=== PATIENT | male | born 1970 | race Caucasian/White ===

== ENCOUNTER 2016-08-12 12:09 | Emergency (ER) | payer OTHER ==
[~2016-08-12] VITALS: Ht 177.8 cm; Wt 68.2 kg
[2016-08-12 12:14] VITALS: BP 150/76; PULSE 71; RESP 20; O2SAT 99
[2016-08-12] MEDS ORDERED: 0.9% Sodium Chloride 1,000 ML IV ONE (12:25)
[2016-08-12] MEDS ORDERED: HYDROmorphone 0.5 mg/0.5 mL iSecure Syringe IVPUSH PRN (12:25)
[2016-08-12] MEDS ORDERED: HYDROmorphone 1 mg/mL Inj IVPUSH ONE (12:25)
[2016-08-12] MEDS ORDERED: Ondansetron 2 mg/mL 2 mL Inj IVPUSH PRN (12:25)
--- NOTE | 2016-08-12 12:25 | ED.REPORT ---
HPI-Abd Pain F 40 and Over Date of Service Aug 12, 2016 ED Provider: Katharine Camara MD The pt is a 46 y/o male presenting to the ED complaining of severe abdominal pain onset four hours ago. He reports the pain being primarily in his lower abdomen and pelvis and beginning after he ate something at work. Yesterday he also reports having a episode of sharp abdominal pain which lasted roughly ten minutes. The pt has also been experiencing allergies for the last 3-4 days. Nursing Notes Stated Complaint: ABDOMINAL PAIN Chief Complaint: Male Abdominal Pain Nursing Notes Reviewed: Yes Allergies: Coded Allergies: No Known Allergies (Unverified , 08/12/16) Scheduled PRN oxyCODONE-Acetaminophen 5-325 mg (oxyCODONE-Acetaminophen 5-325 mg) 1 Each Tablet 1-2 TAB PO Q6H PRN PRN For Pain General Time Seen by MD: 12:24 Chief Complaint Abdominal pain Hx Obtained From: Patient Arrived By: Walk-in Sudden in Onset?: Yes Onset Occurred: 1 - 4 hours ago Symptom Duration: Since onset Recent Healthcare: No recent doctor visit, No recent hospitalization Similar Sx Previous: No Past Medical History Past Medical History None reported Past Surgical History None reported Smoking History Unknown if Ever Smoker Ambulatory Status Independent Review of Systems GI: Reports: Abdominal pain Female: Reports: Pelvic pain Complete sys rev & neg: except as marked. Physical Exam Vital Signs Vital Signs (First) Date Time Temp Pulse Resp B/P Pulse Ox O2 Delivery O2 Flow Rate FiO2 08/12/16 12:14 36.7 71 20 150/76 99 Room Air Initial VS: Reviewed General/Constitutional: Awake, Alert Respiratory / Chest: Atraumatic, Breath sounds NL, Breath sounds = bilat, No respiratory distress, No rales, No rhonchi, No wheezing Cardiovascular: Heart rate NL, Regular rhythm, Heart sounds NL Abdomen: Soft, No rebound Tenderness/Guarding/Rebound: Positive: Tender LLQ... (Significant), Tender epigastric (Mild ) Guarding Back: Atraumatic, Full range of motion Head / Eyes: Atraumatic, Normocephalic ENT: Atraumatic, Airway patent Skin: Atraumatic, Color NL, No rash, Warm, Dry Neurologic: Oriented X3, Speech NL Neck: Atraumatic, Supple, Full range of motion Interpretation & Diagnostics Lab Results Interpretation Result Diagram: 08/12/16 1230 08/12/16 1230 Test 08/12/16 12:30 08/12/16 12:34 White Blood Count 13.1th/mm3 (3.8-10.1) Red Blood Count 5.50mil/mm3 (4.40-5.80) Hemoglobin 15.8g/dL (13.8-17.2) Hematocrit 45.2% (41.0-50.0) Mean Corpuscular Volume 82.2fL (81-100) Mean Corpuscular Hemoglobin 28.7pg (27.0-35.0) Mean Corpuscular Hemoglobin Concent 35.0% (32.0-37.0) Red Cell Distribution Width 13.3% (12.3-15.4) Platelet Count 207bil/L (150-400) Neutrophils (%) (Auto) 91.5% (40-74) Lymphocytes (%) (Auto) 5.3% (14-46) Monocytes (%) (Auto) 2.7% (4-12) Eosinophils (%) (Auto) 0.2% (0-5) Basophils (%) (Auto) 0.1% (0-3) Sodium Level 137mEq/L (134-144) Potassium Level 4.2mEq/L (3.5-5.2) Chloride Level 99mEq/L (97-108) Carbon Dioxide Level 24mmol/L (18-29) Blood Urea Nitrogen 17mg/dL (6-24) Creatinine 1.47mg/dL (0.76-1.27) Estimat Glomerular Filtration Rate 54mL/min (>59) Glucose Level 146mg/dL (60-99) Calcium Level 9.7mg/dL (8.5-10.1) Magnesium Level 2.0mg/dL (1.6-2.6) Total Bilirubin 0.4mg/dL (0.0-1.2) Aspartate Amino Transf (AST/SGOT) 39U/L (0-50) Alanine Aminotransferase (ALT/SGPT) 47U/L (0-44) Alkaline Phosphatase 85U/L (25-150) Total Protein 7.6g/dL (6.4-8.4) Albumin 4.1g/dL (3.4-5.0) Lipase 31U/L (13-60) Hold [place] Top Tube Received (Received) Hold Urine Received (Received) CT Abd / Pelvis Interpretation IMPRESSION: 2 mm stone in the left UVJ causing mild to moderate left-sided hydroureteronephrosis. Dictated by: Lalitha Ashby MD, PhD on 08/12/2016 at 14:10 Approved by: Lalitha Ashby MD, PhD on 08/12/2016 at 14:14 Study type: Abdom CT oral contrast Interpretation / Wet Read by: Interpret - Radiologist Re-Eval/Medical Decision Counseled Regarding: Diagnosis, Lab results, Need for follow-up, When/why to return to ED Discharge & Departure Primary Impression: Kidney stone Disposition: Home Discharge Condition All VS Reviewed: Yes Condition: Stable Additional Instructions: Thank you for entrusting us with your care today. Your CT report shows that you have a kidney stone. I have referred you to Dr. Peña for further care. Please call for as appointment. Do strain your urine to try and collect the stone. If you are able to, please take it with you and see if Dr Peña thinks there is benefit in analysing it. Use 600mg of ibuprofen for moderate pain, add 1 percoset to that for severe pain. If that combination is not enough, then take 2 percoset. If your condition worsens please return to the ER. I hope you feel better soon. Referrals: [facility] Scribe Attestation Portions of this note were transcribed by Jerry Villeda. I, Dr. Camara personally performed the history, physical exam and medical decision-making; I reviewed and confirmed the accuracy of the information in the transcribed note. Signed by : Catrina Tejeda, 08/12/16 and 1317. copies to: Cierra Peña MD; [facility] Katharine Camara MD Aug 12, 2016 12:25 Jerry Villeda Aug 12, 2016 13:17
[2016-08-12] MEDS ORDERED: HYDROmorphone 1 mg/mL Inj IM ONE (12:30)
[2016-08-12 12:48] LABS: BASOPHILS % (AUTO) 0.1 % (0-3); EOSINOPHILS % (AUTO) 0.2 % (0-5); MONOCYTES % (AUTO) 2.7 % (4-12); Mean Corpuscular Hemoglobin 28.7 pg (27.0-35.0); Mean Corpuscular Volume 82.2 fL (81-100); NEUTROPHILS % (AUTO) 91.5 % (40-74); Platelet Count 207 bil/L (150-400)
--- NOTE | 2016-08-12 14:16 | DRSVH ---
PROCEDURE: CT ABDOMEN AND PELVIS WITH CONTRAST ([id number]) INDICATIONS: severe abdominal pain TECHNIQUE: After the administration of intravenous contrast, 5 mm thick sections acquired from the diaphragm to the symphysis. 5 mm coronal and sagittal reformats were acquired. For radiation dose reduction, the following was used: automated exposure control, adjustment of mA and/or kV according to patient siz e. COMPARISON: None. FINDINGS: Image quality: Excellent. ABDOMEN: Lung bases: Lung bases are clear. Heart size is normal. Solid organs: Liver and spleen are normal in size and enhancement. A 1.1 cm subcapsular cysts noted in the left lobe of the liver. Gallbladder is within normal limits. Biliary system is non dilated. Pancreas enhances normally. No adrenal nodules. Mild left perinephric stranding is noted. Mild to mo derate left-sided hydroureteronephrosis is noted. There is a 2 mm stone in the left UVJ. No right-carmelo ed renal stones or hydronephrosis. Peritoneum and bowel: Bowel loops demonstrate normal wall thickness and caliber. No free fluid or a ir. The appendix is normal. Nodes and vessels: No retroperitoneal or mesenteric adenopathy by size criteria. Aorta and inferior vena cava are normal in size. Miscellaneous: No ventral hernias. PELVIS: Genitourinary: Bladder wall thickness is normal. Miscellaneous: No inguinal hernias or adenopathy. Bones: No suspicious bony lesions. No vertebral body compression fractures. Spine degenerative disc disease and facet arthropathy. IMPRESSION: 2 mm stone in the left UVJ causing mild to moderate left-sided hydroureteronephrosis. Dictated by: Lalitha Ashby MD, PhD on 08/12/2016 at 14:10 Approved by: Lalitha Ashby MD, PhD on 08/12/2016 at 14:14
[2016-08-12 14:28] VITALS: BP 130/77; PULSE 96; RESP 16; O2SAT 98
[2016-08-12] MEDS ORDERED: oxyCODONE-Acetamin 5-325 mg Tablet PO ONE (15:40)
[2016-08-12] MEDS ORDERED: OXYC1TAB24 PO (15:42)
[2016-08-12 16:06] VITALS: BP 130/77; PULSE 96; RESP 16; O2SAT 98
== END 2016-08-12 16:07 | disposition home or self-care (01) ==
LOC: SED 12:09
DX: N20.0 Calculus of kidney (principal)
CPT/HCPCS: 36415; 74177; 80053; 83690; 83735; 85025; 96361; 96372; 96374; 96375; 99285; J1170; J1885; J7030; Q9967